=== PATIENT | male | born 1940 | race American Indian/Alaskan Native ===

== ENCOUNTER 2019-07-05 11:39 | Observation (INO) | payer MEDICARE ==
--- NOTE | 2019-07-03 11:09 | Anesthesia Consultation ---
Anesthesia Consult and Med Hx Date of service: 07/03/19 - Airway Anesthetic Teeth Evaluation: Dentures ROM Head & Neck: Adequate Mental/Hyoid Distance: Adequate Mallampati Class: Class II Intubation Access Assessment: Good - Pulmonary Exam CTA: Yes - Cardiac Exam Cardiac Exam: RRR - Pre-Operative Health Status ASA Pre-Surgery Classification: ASA3 Proposed Anesthetic Plan: General (HTN, DM, CARMELITA, prostate CA for GA) - Pulmonary Hx Smoking: No Hx Sleep Apnea: Yes (DX SLEEP APNEA , NO CPAP USE.) - Cardiovascular System Hx Hypertension: Yes (X 20 YRS)
[2019-07-03 11:21] LABS: Basophils % (Auto) 0.7 % (0.0-1.8); Eosinophils # (Auto) 0.2 K/mm3 (0.0-0.4); Eosinophils % (Auto) 6.8 % (0.0-4.3); Hematocrit 43.4 % (35.5-45.6); Hemoglobin 14.3 gm/dl (11.8-15.2); Lymphocytes # (Auto) 1.3 K/mm3 (1.2-5.4); Lymphocytes % (Auto) 41.8 % (13.4-35.0); Mean Corpuscular HGB Conc 33 % (32-34); Mean Corpuscular Volume 84 fl (84-94); Monocytes # (Auto) 0.3 K/mm3 (0.0-0.8); Monocytes % (Auto) 8.7 % (0.0-7.3); Platelet Count 203 K/mm3 (140-440); Red Blood Count 5.17 M/mm3 (3.65-5.03); Red Cell Distribution Width 13.5 % (13.2-15.2)
[2019-07-03 11:42] LABS: Alanine Aminotransferase 29 units/L (7-56); Albumin 4.4 g/dL (3.9-5); BUN/Creatinine Ratio 14; Blood Urea Nitrogen 14 mg/dL (9-20); Calcium 9.6 mg/dL (8.4-10.2); Hemolysis Index 8
[~2019-07-05 11:39] MED LIST: GENTAMICIN/NS 80 MG/100 ML 100 ML IV SCH; MIDAZOLAM 2 MG/2 ML INJ IV NR; VANCOMYCIN/NS 1 GM/250 ML 1 GM/250 ML BAG IV SCH
--- NOTE | 2019-07-05 12:08 | Anesthesia Day of Surgery ---
Anesthesia Day of Surgery - Day of Surgery Patient Examined: Yes Patient H&P Reviewed: Yes Patient is NPO: Yes
[2019-07-05] MEDS: LACTATED RINGERS 1,000 ML IV SCH ×2 (12:45→23:23)
[2019-07-05] MEDS ORDERED: VANCOMYCIN/NS 1 GM/250 ML 1 GM/250 ML BAG IV NR (14:00)
[2019-07-05] MEDS ORDERED: NEOMY 40 MG/POLYMYXIN B 200,000 UNITS/ML (GU) AMPULE IR ONE ×3 (14:36→16:44)
[2019-07-05] MEDS ORDERED: HYDROGEN PEROXIDE 118 ML SOLUTION ONE ×2 (14:36→15:06)
[2019-07-05] MEDS ORDERED: SODIUM CHLORIDE P/F VIAL 10 ML 20 ML ONE (14:36)
[2019-07-05] MEDS ORDERED: BUPIVACAINE/PF (0.5%) 5 MG/1 ML 30 ML VIAL INFILTRATI ONE ×2 (14:36→16:43)
[2019-07-05] MEDS ORDERED: PROPOFOL 200 MG/20 ML VIAL IV ONE (15:10)
[2019-07-05] MEDS ORDERED: fentaNYL 100 MCG/2 ML INJ ONE ×2 (15:10→17:36)
[2019-07-05] MEDS ORDERED: LIDOCAINE MPF (2%) 20 MG/1 ML VIAL 5 ML ONE (15:11)
[2019-07-05] MEDS ORDERED: ONDANSETRON 4 MG/2 ML INJ ONE (16:07)
[2019-07-05] MEDS ORDERED: SODIUM CHLORIDE 0.9% P/F 10 ML VIAL INFILTRATI ONE (16:47)
[2019-07-05] MEDS ORDERED: oxyCODONE /ACETAMINOPHEN 5-325MG TAB PO PRN (17:06)
[2019-07-05] MEDS ORDERED: NALOXONE 0.4 MG/1 ML INJ IV PRN (17:06)
[2019-07-05] MEDS ORDERED: ACETAMINOPHEN 325 MG TAB PO PRN (17:06)
[2019-07-05] MEDS ORDERED: ONDANSETRON 4 MG/2 ML INJ IV PRN (17:06)
[2019-07-05] MEDS ORDERED: HYDROcodone/ACETAMINOPHEN 5-325 MG TAB PO PRN (17:06)
[2019-07-05] MEDS ORDERED: ZOLPIDEM 5 MG TAB PO PRN (17:06)
--- NOTE | 2019-07-05 17:06 | Short Stay Summary ---
Short Stay Documentation Date of service: 07/05/19 - History H&P: obtained from office - Allergies and Medications Current Medications: Allergies No Known Allergies Allergy (Verified 06/21/19 17:19) Home Medications Medication Instructions Recorded Confirmed Last Taken Type Aspirin 81 mg PO DAILY 06/21/19 06/21/19 Unknown History Ciprofloxacin HCl [Ciprofloxacin 500 mg PO Q12HR 06/21/19 06/21/19 Unknown History TAB] Diclofenac Dr [Jarvis Dr] 75 mg PO PRN PRN 06/21/19 06/21/19 Unknown History Omeprazole Magnesium [PriLOSEC Otc] 20 mg PO QDAY 06/21/19 06/21/19 Unknown History Quinapril/Hydrochlorothiazide 1 each PO QDAY 06/21/19 06/21/19 Unknown History [Quinapril-Hctz 20-12.5 mg Tab] Simvastatin 20 mg PO DAILY 06/21/19 06/21/19 Unknown History metFORMIN [Glucophage] 500 mg PO QDAY 06/21/19 06/21/19 Unknown History Active Medications Fentanyl (Sublimaze) 50 mcg IV Q5MIN PRN PRN Reason: Pain , Severe (7-10) Stop: 07/05/19 22:00 Gentamicin Sulfate/Sodium Chloride (Gentamicin/Ns 80 Mg/100 Ml) 100 mls @ 200 mls/hr IV PREOP LISBET Lactated Ringer's (Lactated Ringers) 1,000 mls @ 75 mls/hr IV DIRECT LISBET Last Admin: 07/05/19 12:45 Dose: 75 mls/hr Documented by: Vancomycin HCl (Vancomycin/Ns 1 Gm/250 Ml) 1 gm in 250 mls @ 166.667 mls/hr IV Q12H LISBET; Protocol Stop: 07/06/19 03:29 Vancomycin HCl (Vancomycin/Ns 1 Gm/250 Ml) 1 gm in 250 mls @ 166.667 mls/hr IV PREOP NR; Protocol Stop: 07/05/19 23:59 Last Admin: 07/05/19 14:40 Dose: 166.667 mls/hr Documented by: - Brief post op/procedure progress note Date of procedure: 07/05/19 Pre-op diagnosis: impotence, malfx ipp (leak) Post-op diagnosis: same Procedure: removal ipp (16cm), reinsert ipp CX 15cm + 1 cm RTE), irrigation Anesthesia: GETA Surgeon: KAREN TURNER Estimated blood loss: minimal Pathology: none Condition: stable - Hospital course Hospital course: post op info on chart pt has bactrim & norco at bedside stout & wrap removed earlier today voiding ok dc home - Disposition Condition at discharge: Stable Short Stay Discharge Plan Follow up with: ADILENE GROSS [Other] - 7 Days
[2019-07-05] MEDS ORDERED: DEXTROSE 50% IN WATER (25GM) 50 ML SYRINGE IV PRN ×2 (17:10→20:16)
[2019-07-05] MEDS: fentaNYL 100 MCG/2 ML INJ IV PRN ×2 (17:40→18:07)
[2019-07-05] MEDS ORDERED: SODIUM CHLORIDE 0.45% 1000 ML 1,000 ML IV SCH (18:00)
[2019-07-05] MEDS ORDERED: LACTATED RINGERS 1,000 ML ONE (18:09)
--- NOTE | 2019-07-05 19:32 | Operative Report ---
PREOPERATIVE DIAGNOSES: Erectile dysfunction, malfunctioning penile prosthesis (leak). POSTOPERATIVE DIAGNOSES: Erectile dysfunction, malfunctioning penile prosthesis (leak). PROCEDURE: Removal and reinsertion of inflatable penile prosthesis (AMS 700 CX 100 cm concealed reservoir, 15 cm cylinders with 1-cm rear tip bitumastic applier Renea modified irrigation). SURGEON: Nando Eldridge MD ANESTHESIA: General. SENIOR FRONT END WEB DEVELOPER: Yumiko Cespedes. ESTIMATED BLOOD LOSS: Minimal. FLUIDS: Crystalloid. COMPLICATIONS: No complications. INDICATIONS: This patient is a 78-year-old gentleman known to my service with history of prostate cancer, underwent radical prostatectomy at another facility, had persistent problems with erections. Previous implant was infected by another physician. I inserted an AMS 16 cm device. He did well for 10 years, presented to the office recently with a leak on exam, he presents now for replacement. Risks, benefits, and complications were explained. DESCRIPTION OF PROCEDURE: The patient was taken to the operative suite, placed in a supine position. After adequate general anesthesia, he was prepped and draped in a sterile fashion. Salamanca catheter was placed on the operative field. Yumiko Cespedes, the assistant at surgery, she was present at the bedside for the entire procedure. A trans-scrotal incision was made. Sharp dissection was taken down to the pump. Pump was isolated. Pump site was cultured with anaerobic and aerobic cultures. Tubing was then traced to the corporal bodies. Corporotomies were made. No obvious infection could be appreciated. Cylinders were removed. Corporal bodies, both left and right were cultured as well with anaerobic and aerobic cultures. Measurements were again revealed a total of 16 cm in length, and therefore, at another 15 cm CX device with 1 cm rear tip bitumastic applier was prepped. The reservoir was in the retropubic space from the right external ring. Multiple attempts to remove the reservoir via the scrotal incision was unsuccessful. Therefore, we made a separate inguinal incision. Dissection down to the reservoir was able to remove it without difficulty. At this point, copious irrigation with Renea soup was performed and then a normal irrigant. A 100 mL concealed reservoir was placed in the same site, 100 mL of fluid could be accommodated without difficulty. The tubing was tunneled to the scrotum. Inguinal incision was closed with 2-0 Vicryl in a running fashion and then the stapler. The cylinders were placed in the corporal bodies with the aid of a Reyes needle. A 2-0 Vicryl running stitch was used to close the corporal bodies. Inflation of device was performed. Adequate seating could be appreciated. The pump and reservoir was connected with the quick click connection device. Pump was then closed in the dependent portion of the scrotum using 2-0 Vicryl in a pursestring fashion and then the dartos layer was closed with 2-0 Vicryl in a running fashion. Scrotal skin was closed with 3-0 chromic in interrupted fashion. Collodion was placed with mummy wrap. The patient tolerated the procedure well and was extubated and taken to recovery room. [facility] be observed overnight [facility] JOB# [id number] MILY/FELIPE
--- NOTE | 2019-07-05 19:44 | Post Anesthesia Evaluation ---
- Post Anesthesia Evaluation Patient Participated: Yes Airway Patent: Yes Stable Respiratory Function: Yes Nausea/Vomiting: No Temp > 96.8F: Yes Pain Manageable: Yes Adequeate Hydration: Yes Anesthesia Complications: No
--- NOTE | 2019-07-05 20:12 | Consultation ---
History of Present Illness - Reason for Consult Consult date: 07/05/19 HTN, DM Requesting physician: KAREN ELDRIDGE - History of Present Illness 78 YO Male with HTN, DM, CARMELITA, CaP admitted for Urologic surgery. Consult placed by Dr. Eldridge for medical management. Pt seen and evaluated upon arrival to his room. Pt denies fever, chills, CP, Palpitations, NVD, Trauma, BRBPR, Productive cough, skin rash, or recent ill contacts. No reported nursing events. Past History Past Medical History: cancer, diabetes, hyperthyroidism Past Surgical History: Other (Penile implant) Social history: , lives with family. denies: smoking, alcohol abuse, prescription drug abuse Family history: diabetes, hypertension Medications and Allergies Allergies Allergy/AdvReac Type Severity Reaction Status Date / Time No Known Allergies Allergy Verified 06/21/19 17:19 Home Medications Medication Instructions Recorded Confirmed Last Taken Type Aspirin 81 mg PO DAILY 06/21/19 06/21/19 Unknown History Ciprofloxacin HCl [Ciprofloxacin 500 mg PO Q12HR 06/21/19 06/21/19 Unknown History TAB] Diclofenac [Jarvis Gupta] 75 mg PO PRN PRN 06/21/19 06/21/19 Unknown History Omeprazole Magnesium [PriLOSEC Otc] 20 mg PO QDAY 06/21/19 06/21/19 Unknown History Quinapril/Hydrochlorothiazide 1 each PO QDAY 06/21/19 06/21/19 Unknown History [Quinapril-Hctz 20-12.5 mg Tab] Simvastatin 20 mg PO DAILY 06/21/19 06/21/19 Unknown History metFORMIN [Glucophage] 500 mg PO QDAY 06/21/19 06/21/19 Unknown History Active Meds: Active Medications Acetaminophen (Tylenol) 650 mg PO Q4H PRN PRN Reason: Pain MILD(1-3)/Fever >100.5/[place] Acetaminophen/Hydrocodone Bitart ([place] 5/325) 2 each PO Q6H PRN PRN Reason: Pain, Moderate (4-6) Dextrose (D50w (25gm) Syringe) 50 ml IV Q30MIN PRN PRN Reason: Hypoglycemia Fentanyl (Sublimaze) 50 mcg IV Q5MIN PRN PRN Reason: Pain , Severe (7-10) Stop: 07/05/19 22:00 Last Admin: 07/05/19 18:07 Dose: 50 mcg Documented by: Hydrochlorothiazide (Hctz) 12.5 mg PO QDAY LISBET Gentamicin Sulfate/Sodium Chloride (Gentamicin/Ns 80 Mg/100 Ml) 100 mls @ 200 mls/hr IV PREOP LISBET Lactated Ringer's (Lactated Ringers) 1,000 mls @ 75 mls/hr IV DIRECT LISBET Last Admin: 07/05/19 12:45 Dose: 75 mls/hr Documented by: Vancomycin HCl (Vancomycin/Ns 1 Gm/250 Ml) 1 gm in 250 mls @ 166.667 mls/hr IV Q12H LISBET; Protocol Stop: 07/06/19 03:29 Vancomycin HCl (Vancomycin/Ns 1 Gm/250 Ml) 1 gm in 250 mls @ 166.667 mls/hr IV PREOP NR; Protocol Stop: 07/05/19 23:59 Last Admin: 07/05/19 14:40 Dose: 166.667 mls/hr Documented by: Sodium Chloride (Nacl 0.45% 1000 Ml) 1,000 mls @ 100 mls/hr IV DIRECT LISBET Insulin Human Regular (Humulin R) 0 units SUB-Q ACHS LISBET; Protocol Levofloxacin (Levaquin) 500 mg PO Q24HR [facility] Lisinopril (Zestril) 10 mg PO QDAY [facility] Metformin HCl (Glucophage) 500 mg PO QDAY [facility] Naloxone HCl (Naloxone) 0.1 mg IV Q2MIN PRN PRN Reason: Res Rate </= 8 or 02 SAT < 92% Ondansetron HCl (Zofran) 4 mg IV Q8H PRN PRN Reason: Nausea And Vomiting Oxycodone/Acetaminophen (Percocet 5/325) 1 tab PO Q6H PRN PRN Reason: Pain, Moderate (4-6) Pantoprazole Sodium (Protonix) 20 mg PO QDAY [facility] Pravastatin Sodium (Pravachol) 40 mg PO QHS [facility] Sodium Chloride (Sodium Chloride Flush Syringe 10 Ml) 10 ml IV BID [facility] Sodium Chloride (Sodium Chloride Flush Syringe 10 Ml) 10 ml IV PRN PRN PRN Reason: LINE FLUSH Zolpidem Tartrate (Ambien) 5 mg PO QHS PRN PRN Reason: Insomnia Review of Systems Constitutional: no weight loss, no weight gain, no fever, no chills Ears, nose, mouth and throat: no ear pain, no ear discharge, no tinnitis, no nose pain, no nasal congestion Cardiovascular: no chest pain, no palpitations, no rapid/irregular heart beat, no syncope, no lightheadedness Respiratory: no excessive sputum, no hemoptysis, no dyspnea on exertion Gastrointestinal: no abdominal pain, no nausea, no vomiting, no diarrhea, no hematemesis Genitourinary Male: no hematuria, no flank pain, no discharge, no urinary h esitancy, no nocturia, no erectile dysfunction Rectal: no pain, no incontinence, no bleeding Musculoskeletal: no neck stiffness, no neck pain, no shooting arm pain, no arm numbness/tingling, no leg numbness/tingling, no redness of joints Integumentary: no rash, no pruritis, no redness, no sores, no wounds, no boils Neurological: no head injury, no transient paralysis, no weakness, no parathesias, no seizures Psychiatric: no anxiety, no memory loss, no change in sleep habits, no sleep disturbances, no insomnia, no change in appetite Endocrine: no cold intolerance, no heat intolerance, no polyphagia, no excessive thirst, no polydipsia, no nocturia, no flushing Hematologic/Lymphatic: no easy bruising, no easy bleeding, no lymphadenopathy, no lymphedema Allergic/Immunologic: no urticaria, no allergic rhinitis, no wheezing, no persistent infections, no anaphylaxis, no angioedema Exam - Constitutional Vitals: Temp Pulse Resp BP Pulse Ox 97.7 F 99 H 16 158/85 99 07/05/19 18:52 07/05/19 18:52 07/05/19 18:52 07/05/19 18:52 07/05/19 18:52 General appearance: Present: no acute distress, well-nourished - EENT Eyes: Present: PERRL ENT: hearing intact, clear oral mucosa - Neck Neck: Present: supple, normal ROM - Respiratory Respiratory effort: normal Respiratory: bilateral: CTA - Cardiovascular Heart Sounds: Present: S1 & S2. Absent: rub, click - Extremities Extremities: pulses symmetrical, No edema Peripheral Pulses: within normal limits - Abdominal General gastrointestinal: Present: soft, non-tender, non-distended, normal bowel sounds Male genitourinary: Present: normal - Integumentary Integumentary: Present: clear, warm, dry - Musculoskeletal Musculoskeletal: gait normal, strength equal bilaterally - Psychiatric Psychiatric: appropriate mood/affect, intact judgment & insight - Neurologic Neurologic: CNII-XII intact, moves all extremities Results - Labs CBC & Chem 7: 07/03/19 10:50 07/03/19 10:50 Labs: Abnormal lab results 07/05/19 07/05/19 Range/Units 12:57 17:30 POC Glucose 148 H 112 H (70-105) Assessment and Plan - Patient Problems (1) HTN (hypertension) Current Visit: Yes Status: Acute Qualifiers: Hypertension type: essential hypertension Qualified Code(s): I10 - Essential (primary) hypertension Plan to address problem: Monitor bp q shift, continue medical management. pain control. (2) Diabetes Current Visit: Yes Status: Acute Plan to address problem: ADA diet, sliding scale insulin, accu check, hypoglycemia protocol. Resume oral antihyperglycemic medication at discharge. (3) CARMELITA (obstructive sleep apnea) Current Visit: Yes Status: Acute Plan to address problem: supplemental oxygen, cpap phs as tolerated.
[2019-07-05] MEDS: MORPHINE 2 MG/1 ML INJ IV PRN (21:40)
[2019-07-05] MEDS ORDERED: PRAVASTATIN 40 MG TAB PO SCH (22:00)
[2019-07-05] MEDS ORDERED: INSULIN REGULAR, HUMAN 100 UNITS/1 ML SUB-Q SCH (22:00)
[2019-07-06] MEDS: INSULIN LISPRO 100 UNIT/ML SUB-Q SCH ×3 (01:52→14:01)
[2019-07-06] MEDS ORDERED: VANCOMYCIN/NS 1 GM/250 ML 1 GM/250 ML BAG IV SCH (02:00)
[2019-07-06] MEDS: MORPHINE 2 MG/1 ML INJ IV PRN (06:00)
[2019-07-06] MEDS: LISINOPRIL 10 MG TAB PO SCH ×2 (09:56→10:02)
[2019-07-06] MEDS ORDERED: HYDROCHLOROTHIAZIDE PO SCH (10:00)
[2019-07-06] MEDS ORDERED: NON-FORMULARY EACH (Simvastatin [Simvastatin] 20 MG) PO SCH (10:00)
[2019-07-06] MEDS ORDERED: QUINAPRIL PO SCH (10:00)
[2019-07-06] MEDS ORDERED: NON-FORMULARY EACH (Omeprazole Magnesium [Prilosec Otc] 20 MG) PO SCH (10:00)
[2019-07-06] MEDS ORDERED: hydroCHLOROthiazide 12.5 MG CAP PO SCH (10:00)
[2019-07-06] MEDS ORDERED: metFORMIN 500 MG TAB PO SCH (10:00)
[2019-07-06] MEDS ORDERED: levoFLOXacin 500 MG TAB PO SCH (10:00)
[2019-07-06] MEDS ORDERED: PANTOPRAZOLE 20 MG TAB PO SCH (10:00)
[2019-07-06] MEDS ORDERED: [UNRECOGNIZED DRUG - OTHER] PO SCH (10:00)
--- NOTE | 2019-07-06 11:45 | Progress Note ---
Assessment and Plan Assessment and plan: Hypertension. Continue antihypertensive medications. Diabetes mellitus type 2. Continue Accu-Cheks and sliding scale insulin. Obstructive sleep apnea. Continue oxygen and CPAP as needed. History Interval history: No new issues overnight. Hospitalist Physical - Constitutional Vitals: Temp Pulse Resp BP Pulse Ox 98.6 F 63 18 115/64 95 07/06/19 08:28 07/06/19 10:02 07/06/19 08:28 07/06/19 10:02 07/06/19 08:28 General appearance: Present: no acute distress, well-nourished - EENT Eyes: Present: PERRL, EOM intact ENT: hearing intact, clear oral mucosa, dentition normal - Neck Neck: Present: supple, normal ROM - Respiratory Respiratory effort: normal Respiratory: bilateral: CTA - Cardiovascular Rhythm: regular Heart Sounds: Present: S1 & S2. Absent: gallop, rub - Extremities Extremities: no ischemia, No edema, Full ROM - Abdominal General gastrointestinal: soft, non-tender, non-distended, normal bowel sounds - Integumentary Integumentary: Present: clear, warm, dry - Neurologic Neurologic: CNII-XII intact, moves all extremities Results - Labs CBC & Chem 7: 07/03/19 10:50 07/03/19 10:50 Labs: Laboratory Last Values WBC 3.2 K/mm3 (4.5-11.0) L 07/03/19 10:50 RBC 5.17 M/mm3 (3.65-5.03) H 07/03/19 10:50 Hgb 14.3 gm/dl (11.8-15.2) 07/03/19 10:50 Hct 43.4 % (35.5-45.6) 07/03/19 10:50 MCV 84 fl (84-94) 07/03/19 10:50 MCH 28 pg (28-32) 07/03/19 10:50 MCHC 33 % (32-34) 07/03/19 10:50 RDW 13.5 % (13.2-15.2) 07/03/19 10:50 Plt Count 203 K/mm3 (140-440) 07/03/19 10:50 Lymph % (Auto) 41.8 % (13.4-35.0) H 07/03/19 10:50 Mccormick % (Auto) 8.7 % (0.0-7.3) H 07/03/19 10:50 Eos % (Auto) 6.8 % (0.0-4.3) H 07/03/19 10:50 Baso % (Auto) 0.7 % (0.0-1.8) 07/03/19 10:50 Lymph # 1.3 K/mm3 (1.2-5.4) 07/03/19 10:50 Mccormick # 0.3 K/mm3 (0.0-0.8) 07/03/19 10:50 Eos # 0.2 K/mm3 (0.0-0.4) 07/03/19 10:50 Baso # 0.0 K/mm3 (0.0-0.1) 07/03/19 10:50 Seg Neutrophils % 42.0 % (40.0-70.0) 07/03/19 10:50 Seg Neutrophils # 1.3 K/mm3 (1.8-7.7) L 07/03/19 10:50 Sodium 137 mmol/L (137-145) 07/03/19 10:50 Potassium 4.1 mmol/L (3.6-5.0) 07/03/19 10:50 Chloride 99.6 mmol/L (98-107) 07/03/19 10:50 Carbon Dioxide 25 mmol/L (22-30) 07/03/19 10:50 Anion Gap 17 mmol/L 07/03/19 10:50 BUN 14 mg/dL (9-20) 07/03/19 10:50 Creatinine 1.0 mg/dL (0.8-1.5) 07/03/19 10:50 Estimated GFR > 60 ml/min 07/03/19 10:50 BUN/Creatinine Ratio 14 % 07/03/19 10:50 Glucose 225 mg/dL (75-100) H 07/03/19 10:50 POC Glucose 182 (70-105) H 07/06/19 05:27 Calcium 9.6 mg/dL (8.4-10.2) 07/03/19 10:50 Total Bilirubin 0.50 mg/dL (0.1-1.2) 07/03/19 10:50 AST 27 units/L (5-40) 07/03/19 10:50 ALT 29 units/L (7-56) 07/03/19 10:50 Alkaline Phosphatase 54 units/L (35-129) 07/03/19 10:50 Total Protein 7.3 g/dL (6.3-8.2) 07/03/19 10:50 Albumin 4.4 g/dL (3.9-5) 07/03/19 10:50 Albumin/Globulin Ratio 1.5 % 07/03/19 10:50 Active Medications - Current Medications Current Medications: Generic Name Dose Route Start Last Admin Trade Name Freq PRN Reason Stop Dose Admin Acetaminophen 650 mg 07/05/19 17:06 Tylenol PO Q4H PRN Pain MILD(1-3)/Fever >100.5/[place] Acetaminophen/Hydrocodone Bitart 2 each 07/05/19 17:06 07/05/19 23:16 [place] 5/325 PO 2 each Q6H PRN Administration Pain, Moderate (4-6) Dextrose 50 ml 07/05/19 20:16 D50w (25gm) Syringe IV Q30MIN PRN Hypoglycemia Hydrochlorothiazide 12.5 mg 07/06/19 10:00 07/06/19 09:55 Hctz PO 12.5 mg QDAY LISBET Administration Gentamicin Sulfate/Sodium Chloride 100 mls @ 200 mls/hr 07/05/19 00:01 Gentamicin/Ns 80 Mg/100 Ml IV PREOP LISBET Lactated Ringer's 1,000 mls @ 75 mls/hr 07/03/19 12:00 07/05/19 23:23 Lactated Ringers IV 75 mls/hr DIRECT LISBET Administration Sodium Chloride 1,000 mls @ 100 mls/hr 07/05/19 18:00 Nacl 0.45% 1000 Ml IV DIRECT LISBET Insulin Human Lispro 0 unit 07/06/19 00:00 07/06/19 05:55 Humalog SUB-Q 2 unit Q6HR LISBET Administration Protocol Levofloxacin 500 mg 07/06/19 10:00 07/06/19 09:55 Levaquin PO 500 mg Q24HR LISBET Administration Lisinopril 10 mg 07/06/19 10:00 07/06/19 10:02 Zestril PO 10 mg QDAY LISBET Administration Morphine Sulfate 2 mg 07/05/19 21:05 07/06/19 06:00 Morphine IV 2 mg Q6H PRN Administration Pain, Moderate (4-6) Naloxone HCl 0.1 mg 07/05/19 17:06 Naloxone IV Q2MIN PRN Res Rate </= 8 or 02 SAT < 92% Ondansetron HCl 4 mg 07/05/19 17:06 Zofran IV Q8H PRN Nausea And Vomiting Oxycodone/Acetaminophen 1 tab 07/05/19 17:06 Percocet 5/325 PO Q6H PRN Pain, Moderate (4-6) Pantoprazole Sodium 20 mg 07/06/19 10:00 07/06/19 09:55 Protonix PO 20 mg QDAY LISBET Administration Pravastatin Sodium 40 mg 07/05/19 22:00 07/05/19 23:52 Pravachol PO 40 mg QHS LISBET Administration Sodium Chloride 10 ml 07/05/19 22:00 07/06/19 09:56 Sodium Chloride Flush Syringe 10 Ml IV Not Given BID LISBET Sodium Chloride 10 ml 07/05/19 17:06 Sodium Chloride Flush Syringe 10 Ml IV PRN PRN LINE FLUSH Zolpidem Tartrate 5 mg 07/05/19 17:06 Ambien PO QHS PRN Insomnia
[2019-07-06 16:45] VITALS: BP 100/43
== END 2019-07-06 19:30 | disposition home or self-care (01) ==
LOC: OR 11:39 → 3B-SURG 17:06
PROVIDERS: ADMIT Urology; ATTEND Urology
DX: N52.9 Male erectile dysfunction, unspecified (principal); C61 Malignant neoplasm of prostate; T83.490A Other mechanical complication of implanted penile prosthesis, initial encounter; I10 Essential (primary) hypertension; E05.90 Thyrotoxicosis, unspecified without thyrotoxic crisis or storm; E11.9 Type 2 diabetes mellitus without complications; G47.33 Obstructive sleep apnea (adult) (pediatric); Z79.82 Long term (current) use of aspirin
CPT/HCPCS: 36415; 54401; 80053; 82962; 85025; 87075; 87116; 96365; 96366; 96372; 96375; 96376; A9270; C1813; G0378; J1580; J2270; J2405; J2704; J3010; J3370; J7120; J1815